=== PATIENT | male | born 1945 | race Caucasian/White ===

== ENCOUNTER 2019-03-31 14:20 | Emergency (ER) | payer MEDICARE, BC ==
[~2019-03-31] VITALS: Ht 175.3 cm; Wt 73.5 kg
--- NOTE | 2019-03-31 14:46 | NUR ---
ED Nurse Note: Pt. came in from home c/o right buttock pain radiating down started on monday03/25/19 after testosteron injection in that area. Pain 5/10 rashaad. AOx4, VSS. Will cont to monitor.
[2019-03-31 14:48] VITALS: BP 125/78
[2019-03-31] MEDS ORDERED: Ketorolac 60mg Inj IM ONE (15:15)
[2019-03-31 15:26] VITALS: BP 125/78
--- NOTE | 2019-03-31 15:26 | NUR ---
ER DISCHARGE NOTE: Patient is cleared to be discharged per ERMD, pt is aox4, on room air, with stable vital signs. pt was given dc and prescription instructions, pt was able to verbalize understanding, pt id band removed. pt is able to ambulate with steady gait. pt took all belongings.
--- NOTE | 2019-03-31 21:30 | Emergency Room Report ---
History of Present Illness General Chief Complaint: Pain Source: Patient (SUMAN WHALEY) Present Illness HPI Patient is a 73-year-old male presenting for right-sided buttock pain. States that this began after having testosterone pellets implanted into the area. These pellets were supposedly placed into subcutaneous space. Pain is a 5 out of 10 dull ache and does radiate down the right leg. Worse with movement. He denies other symptoms including numbness, tingling, weakness, fever, chills, rash (SUMAN WHALEY) Allergies: Coded Allergies: No Known Allergies (Unverified , 03/31/19) Patient History Past Medical History: see triage record Pertinent Family History: none Reviewed Nursing Documentation: PMH: Agreed; PSxH: Agreed (SUMAN WHALEY) Nursing Documentation-PMH Past Medical History: No History, Except For Hx Hypertension: Yes Hx Cancer: Yes - [facility] (SUMAN WHALEY) Review of Systems All Other Systems: negative except mentioned in HPI (SUMAN WHALEY) Physical Exam Vital Signs Date Time Temp Pulse Resp B/P (MAP) Pulse Ox O2 Delivery O2 Flow Rate FiO2 03/31/19 14:26 98.2 109 18 121/79 (93) 95 Room Air Sp02 EP Interpretation: reviewed, normal General Appearance: no apparent distress, alert, GCS 15, non-toxic Head: normocephalic, atraumatic Musculoskeletal: back normal, gait/station normal, normal range of motion, no calf tenderness, swelling - R buttock, tender - R buttock Neurologic: alert, oriented x3, responsive, motor strength/tone normal Psychiatric: judgement/insight normal, memory normal, mood/affect normal, no suicidal/homicidal ideation (SUMAN WHALEY) Medical Decision Making PA Attestation Dr. Matute is my supervising physician. Patient management was discussed with my supervising physician (SUMAN WHALEY) Diagnostic Impression: Primary Impression: Sciatica Qualified Codes: M54.31 - Sciatica, right side ER Course Patient is a 73-year-old male presenting for right-sided buttock pain. DDx considered but not limited to: Sciatica, muscle strain, cellulitis, abscess , injection site reaction, among others PE: Afebrile. NAD. Normal gait TTP over the R buttock with mild ecchymosis and some induration. Xray shows no radiopaque substance in the area. Pt is given Toradol for pain which did help he is told to use ice and ibuprofen for pain and to f/u with the physician who implanted the pellets. He refused prescription. ER precautions given (SUMAN WHALEY) Other X-Ray Diagnostic Results Other X-Ray Diagnostic Results : X-Ray ordered: R hip/pelvis # of Views/Limited Vs Complete: 2 View, Complete Indication: Pain EP Interpretation: Yes PA Xray: Interpretation reviewed, by supervising MD, and agrees with findings. Interpretation: no dislocation, no soft tissue swelling, no fractures Impression: No acute disease Electronically Signed by: Suman Whaley PA-C (SUMAN WHALEY) Other X-Ray Diagnostic Results : Electronically Signed by: Qasim Wyatt documentation of Xray reviewed by me and is accurate, Dustin Matute MD (Dustin Matute MD) Last Vital Signs Date Time Temp Pulse Resp B/P (MAP) Pulse Ox O2 Delivery O2 Flow Rate FiO2 03/31/19 15:26 98.2 79 18 125/78 99 Room Air Status: improved (SUMAN WHALEY) Disposition: HOME, SELF-CARE Condition: Improved Patient Instructions: Sciatica Additional Instructions: I discussed my findings with the patient. All questions and concerns have been answered. Treatment and medication compliance have been addressed. I advised the patient that they need to follow up with Primary doctor in 3-5 days. Return to ED if symptoms worsen, new symptoms arise, or if needed for any reason. Patient verbalized understanding of discharge instructions. SUMAN WHALEY Mar 31, 2019 21:30 Dustin Matute MD Apr 01, 2019 00:43
--- NOTE | 2019-04-01 13:56 | Diagnostic Imaging Report ---
Indication: Pain Technique: One view of the pelvis, one view the right hip Comparison: none Findings: No acute fractures. No dislocations. There is a penile prosthesis noted Impression: No acute process
== END 2019-03-31 15:26 | disposition home or self-care (01) ==
LOC: EMR 14:55
DX: M54.31 Sciatica, right side (principal); I10 Essential (primary) hypertension; Z85.9 Personal history of malignant neoplasm, unspecified
CPT/HCPCS: 96372; 99283